=== PATIENT | male | born 1965 | race Caucasian/White ===

== ENCOUNTER 2017-02-15 14:21 | Emergency (ER) | payer BC ==
--- NOTE | 2017-02-15 14:56 | UC ---
Ear Complaint HPI - HPI Summary HPI Summary: Patient was seen by Moe SALCIDO. - History of Current Complaint Stated Complaint: EAR PAIN Time Seen by Provider: 02/15/17 14:55 - Allergies/Home Medications Allergies/Adverse Reactions: Allergies Allergy/AdvReac Type Severity Reaction Status Date / Time Sulfa Antibiotics Allergy Hives Verified 02/15/17 16:13 Home Medications: Home Medications Losartan TAB* [Cozaar TAB*] 25 mg PO DAILY 02/15/17 [History Confirmed 02/15/17] Montelukast Sodium TAB* [Singulair TAB*] 10 mg PO DAILY 02/15/17 [History Confirmed 02/15/17] Pantoprazole Sodium [Protonix] 20 mg PO 02/15/17 [History] PMH/Surg Hx/FS Hx/Imm Hx Previously Healthy: Yes Review of Systems Constitutional: Negative Skin: Negative Eyes: Negative ENT: Ear Ache Respiratory: Negative Cardiovascular: Negative Gastrointestinal: Negative Genitourinary: Negative Motor: Negative Neurovascular: Negative Musculoskeletal: Negative Neurological: Negative Psychological: Negative All Other Systems Reviewed And Are Negative: Yes Physical Exam Triage Information Reviewed: Yes Eye Exam: Normal ENT: Positive: Other: - EARACHE Dental Exam: Normal Neck exam: Normal Neck: Positive: 1 Respiratory Exam: Normal Cardiovascular Exam: Normal Abdominal Exam: Normal Musculoskeletal Exam: Normal Neurological Exam: Normal Psychological Exam: Normal Skin Exam: Normal Ear Complaint Course/Dx - Differential Dx/Diagnosis Provider Diagnoses: EARACHE Discharge - Discharge Plan Condition: Stable Disposition: HOME Prescriptions: Amoxicillin/Clavulanate TAB* [Augmentin TAB 875*] 875 mg PO BID #20 tab Ciproflox/Dexameth OTIC.SUSP* [Ciprodex OTIC.SUSP*] 3 drop .SEE ORDER TID #1 btl Patient Education Materials: Cerumen Impaction (ED), Earache (ED), Serous Otitis Media (ED) Referrals: [facility] [place] [facility] [Outside] No Primary Care Phys,NOPCP [Primary Care Provider] -
[2017-02-15 16:13] VITALS: BP 143/101
--- NOTE | 2017-02-15 17:24 | UC ---
Ear Complaint HPI - HPI Summary HPI Summary: TWO MONTHS OF BILATERAL EAR PAIN, PRESSURE. GETS FREQUENT SINUS INFECTIONS AND HAS ALLERGIES WHERE HE TAKES DAILY FLONASE. NEW TO AREA. NEDDS TO ESTABLISH PRIMARY CARE. - History of Current Complaint Chief Complaint: UCEar Stated Complaint: EAR PAIN Time Seen by Provider: 02/15/17 14:55 Hx Obtained From: Patient Onset/Duration: Gradual Onset, Lasting Weeks, Still Present Associated Signs/Symptoms: Positive: Hearing Loss, URI Symptoms - Allergies/Home Medications Allergies/Adverse Reactions: Allergies Allergy/AdvReac Type Severity Reaction Status Date / Time Sulfa Antibiotics Allergy Hives Verified 02/15/17 16:13 Home Medications: Home Medications Losartan TAB* [Cozaar TAB*] 25 mg PO DAILY 02/15/17 [History Confirmed 02/15/17] Montelukast Sodium TAB* [Singulair TAB*] 10 mg PO DAILY 02/15/17 [History Confirmed 02/15/17] Pantoprazole Sodium [Protonix] 20 mg PO 02/15/17 [History] PMH/Surg Hx/FS Hx/Imm Hx Previously Healthy: Yes - Surgical History Surgical History: None - Family History Known Family History: Positive: Respiratory Disease - Social History Occupation: Employed Full-time Lives: With Family Alcohol Use: Occasionally Substance Use Type: None Smoking Status (MU): Never Smoked Tobacco Review of Systems Constitutional: Negative Skin: Negative Eyes: Negative ENT: Ear Ache Respiratory: Negative Cardiovascular: Negative Gastrointestinal: Negative Genitourinary: Negative Motor: Negative Neurovascular: Negative Musculoskeletal: Negative Neurological: Negative Psychological: Negative All Other Systems Reviewed And Are Negative: Yes Physical Exam Triage Information Reviewed: Yes Appearance: Well-Appearing, No Pain Distress Vital Signs: Initial Vital Signs Temp 99.0 F 02/15/17 16:07 Pulse 92 02/15/17 16:07 Resp 18 02/15/17 16:07 BP 143/101 02/15/17 16:07 Pulse Ox 99 02/15/17 16:07 Vital Signs Reviewed: Yes Eye Exam: Normal ENT: Positive: Pharynx normal, Nasal congestion, TM bulging, TM dull, Other: - BILATERAL CERUMEN IMPACTION; EDEMA RIGHT EAC Dental Exam: Normal Neck exam: Normal Respiratory Exam: Normal Ear Complaint Course/Dx - Differential Dx/Diagnosis Differential Diagnosis/HQI/PQRI: Cerumen Impaction, Otitis Externa, Otitis Media , Trauma, URI Provider Diagnoses: BILATTERAL CERUMEN IMPACTION; SINUSITIS; RIGHT OTITIS SEROUS Discharge - Discharge Plan Condition: Stable Disposition: HOME Prescriptions: Amoxicillin/Clavulanate TAB* [Augmentin TAB 875*] 875 mg PO BID #20 tab Ciproflox/Dexameth OTIC.SUSP* [Ciprodex OTIC.SUSP*] 3 drop .SEE ORDER TID #1 btl Patient Education Materials: Cerumen Impaction (ED), Earache (ED), Serous Otitis Media (ED) [place] [facility] [place] [facility] [Outside] No Primary Care Phys,NOPCP [Primary Care Provider] -
== END 2017-02-15 17:20 | disposition home or self-care (01) ==
LOC: UCEAST 14:21
DX: H61.23 Impacted cerumen, bilateral (principal); J32.9 Chronic sinusitis, unspecified; H65.91 Unspecified nonsuppurative otitis media, right ear; T78.40XA Allergy, unspecified, initial encounter
CPT/HCPCS: 99203; G0463

== ENCOUNTER 2018-11-04 08:41 | Day surgery (SDC) | payer BC ==
--- NOTE | 2018-11-01 21:23 | HP ---
PREOPERATIVE HISTORY AND PHYSICAL: DATE OF ADMISSION/SURGERY: 11/04/18 ATTENDING SURGEON: Dr. James Rodriguez.* (DICTATED BY OMARI DESAI) PROCEDURE: Left elbow lateral epicondylar debridement, extensor carpi radialis brevis repair. CHIEF COMPLAINT: Left elbow pain. HISTORY OF PRESENT ILLNESS: King is a 53-year-old who presents to the clinic for left elbow pain due to a tear of his ECRB. He has failed conservative measures and is therefore agreed to undergo a left elbow lateral epicondylar debridement, extensor carpi radialis brevis repair on 11/04/18. PAST MEDICAL HISTORY: Hypertension, asthma, high cholesterol, GERD, anxiety. PAST SURGICAL HISTORY: ACL left knee, several endoscopy/colonoscopy procedures. The patient denies prior complications with anesthesia. He does get nausea and vomiting, but with his last procedure he did not have any. MEDICATIONS: 1. Montelukast sodium 10 mg one by mouth every day. 2. ProAir HFA 108 mcg/act 2 puffs every 4 hours as needed. 3. Ibuprofen 200 mg 2 to 3 tabs days every 6 hours. 4. Breo Ellipta 200/25 mcg inhalation 1 inhalation daily. 5. Pantoprazole sodium 40 mg 1 by mouth every day. 6. Losartan potassium 50 mg 1 by mouth every day. 7. Fluticasone propionate 50 mcg/act 1 spray each nostril every day. ALLERGIES: SULFA ANTIBIOTICS. FAMILY HISTORY: Positive for hypertension and cancer. SOCIAL HISTORY: He lives with his spouse. 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 He denies tobacco use. He reports occasional alcohol consumption. He is right hand dominant. REVIEW OF SYSTEMS: A 14-point review of systems was reviewed with the patient. Positive for current complaint otherwise negative. Denies fever, chills, chest pain, shortness of breath, history of bleeding disorder, history of DVT or PE. PHYSICAL EXAMINATION GENERAL: A 53-year-old well-developed, well-nourished male, in no acute distress, alert and oriented x3. VITAL SIGNS: Height 70, weight 200, pulse 72, blood pressure 130/92, respiratory rate 16, temperature 96.5, BMI 28.7. HEENT: Normocephalic, atraumatic. PERRLA. Throat clear. NECK: Supple. PULMONARY: Lungs clear to auscultation bilaterally. No wheezing, rhonchi, or rales. CARDIO: Regular rate and rhythm. S1 and S2. No murmurs, gallops, or rubs. No edema. ABDOMEN: Positive bowel sounds, soft, nontender. MUSCULOSKELETAL: Left upper extremity: Skin is intact. No warmth or erythema. Full range of motion of elbow, wrist, and hand. No bruising. No palpable defect. Tenderness to palpation over the lateral epicondyle. Discomfort with resistance to wrist extension and long finger extension. +2 radial pulses. +5/5 supply tech strength. Sensation is intact to light touch distally. NEURO: Alert and oriented x3. Cranial nerves grossly intact. DIAGNOSTIC STUDIES: MRI revealed no full-thickness tear of the tendon. He does have thick stigmata of lateral epicondylitis with no loose body. IMPRESSION: Left elbow lateral epicondylitis. PLAN: The patient is scheduled to undergo left elbow lateral epicondylar debridement, extensor carpi radialis brevis repair performed on 11/04/18. He will follow up in 10 to 14 days postop and tramadol will be used for postop pain management. OMARI DESAI [id number]/[facility] #: [id number] ROXI
[~2018-11-04 08:41] MED LIST: Buffered Lidocaine 1% SYRIN* 1 ML/SYRINGE INTRADERM ONE; Famotidine IV* 10 MG/ML 2 ML (20 mg) IV ONE; Lactated Ringers 1000 ML Bag* 1,000 ML IV SCH
[2018-11-04] MEDS ORDERED: Famotidine IV* 10 MG/ML 2 ML (20 mg) ONE (08:47)
[2018-11-04] MEDS ORDERED: ceFAZolin 2 GM in NS PREMIX(*) 2 GM/100 ML BAG IVPB ONE (08:47)
[2018-11-04] MEDS ORDERED: Midazolam* 1 MG/ML 5 ML VIAL (5 MG) ONE (09:51)
[2018-11-04] MEDS ORDERED: fentaNYL* 50 MCG/ML 2 ML VIAL (100 MCG VIAL) ONE (09:51)
[2018-11-04] MEDS ORDERED: Bupivacaine 0.25% EPI 200,000* 30 ML SDV ONE (11:04)
[2018-11-04] MEDS ORDERED: Ropivacaine* 2 MG/ML 20 ML VIAL (0.2%) ONE (11:54)
[2018-11-04] MEDS ORDERED: Ondansetron INJ* 2 MG/ML VIAL ONE (12:28)
[2018-11-04] MEDS ORDERED: DiMENhydriNATE IV* 50 MG/ML VIAL ONE (12:28)
[2018-11-04] MEDS ORDERED: Ketorolac INJ* 30 MG/ML 1 ML VIAL ONE (12:28)
[2018-11-04] MEDS ORDERED: Dexamethasone IV* 4 MG/ML 1 ML (4 MG) ONE (12:28)
[2018-11-04] MEDS ORDERED: Propofol* 10 MG/ML 20 ML BTL ONE (12:28)
[2018-11-04] MEDS ORDERED: Naloxone* 0.4 MG/ML 1 ML VIAL IV PRN (12:40)
[2018-11-04] MEDS ORDERED: DiMENhydriNATE IV* 50 MG/ML VIAL IV PUSH PRN (12:40)
[2018-11-04] MEDS ORDERED: Scopolamine 1.5 mg* PATCH TRANSDERM PRN (12:40)
[2018-11-04] MEDS ORDERED: Acetaminophen TAB* 325 MG PO PRN (12:40)
[2018-11-04] MEDS ORDERED: HYDROmorphone INJ1* 1 MG/ML SYRINGE IV PRN (12:40)
[2018-11-04] MEDS ORDERED: HYDROmorphone INJ1* 1 MG/ML SYRINGE ONE (12:53)
[2018-11-04] MEDS ORDERED: Scopolamine 1.5 mg* PATCH ONE (12:58)
[2018-11-04] MEDS ORDERED: oxyCODONE/Acetamin 5/325 MG* TAB ONE (12:58)
[2018-11-04] MEDS ORDERED: Acetaminophen TAB* 325 MG ONE (13:26)
[2018-11-04 14:22] VITALS: BP 138/89
--- NOTE | 2018-11-05 02:18 | OP ---
CC: PCP OPERATIVE REPORT: DATE OF OPERATION: 11/04/18 DATE OF : 69 SURGEON: James Rodriguez MD SETTER [employer]ACHINES: OMARI Bruce An client services assistant was needed for the entirety of the case to help with positioning, retraction, and was ut ilized throughout all portions of the case. ANESTHESIOLOGIST: Dr. Mariano ANESTHESIA: General. PRE-OP DIAGNOSIS: Left lateral epicondylitis. POST-OP DIAGNOSIS: Left lateral epicondylitis. OPERATIVE PROCEDURE: Left elbow open lateral epicondylar debridement with exostectomy of the lateral epicondyle and repair of the extensor tendon. ESTIMATED BLOOD LOSS: Minimal. TOURNIQUET TIME: 22 minutes at 250 mmHg. INDICATIONS: King Wagner is a 53-year-old male who has had persistent symptoms of pain with sever al years of lateral epicondylitis. He has failed conservative management. He says he has significan t daily pain and limitation of his activity. Risks and benefits were discussed at length including, b ut not limited to, bleeding; infection; damage to nerves, vessels, surrounding structures; wound nonh ealing; persistent pain; need for further surgery; scarring; stiffness; incomplete relief of symptoms ; risk of anesthesia. He has elected to proceed. DESCRIPTION OF PROCEDURE: The patient was greeted in the preoperative area by the attending surgeon. Correct extremity was marked. Consent was confirmed. The patient was brought back to the operatin g suite where he was placed in the supine position on the table. A hand table was brought to the [facility] ld. A nonsterile tourniquet was placed high in the proximal arm. He underwent general anesthesia wi th LMA intubation. The left arm was prepped and draped in the usual sterile fashion beginning with c hlorhexidine soap, scrub, and alcohol wipe. After appropriate surgical pause indicating site, side, procedure, administration of antibiotics, an Esmarch was used to exsanguinate the limb. The tourniquet was inflated to 250 mmHg. A 4 cm lateral based incision just anterior to the lateral epicondyle was made sharply through the skin. There was some scarring of the subcutaneous tissue. Extensor tendon was identified and the ECRL and EDC were i dentified. An incision was made between the 2 tendons to expose the ECRB. Tendon quality was quite poor and there was significant inflammatory tissue which was debrided back using a knife and a rongeu r. Once the diseased tissue was removed, which was confirmed using the Nirschl scratch test, the fla ps under both the EDC and ECRL were examined to make sure there was no fibrinous tissue. The ECRB wa s evaluated, some of the tendon had some partial thickness tearing. The lateral epicondyle was then exposed and then grasped using a rasp as well as a rongeur and shaved down. The wounds were then endoscopic technician iously irrigated. Using one 0.08 mm K wire, three small drill holes were made in the lateral epicond yle to stimulate wound healing. Wounds were then copiously irrigated again. The extensor tendons we re reapproximated carefully for watertight closure using 2-0 Ethibond suture. The subcutaneous layer s were then closed with 4-0 Monocryl and the skin was closed with 4-0 Monocryl in running fashion. Sterile dressings were applied. The wound was injected with 0.2% ropivacaine. Tourniquet was deflat ed. A posterior splint was applied including the wrist. The patient was awoken from anesthesia and transferred to the PACU in stable condition. POSTOPERATIVE PLAN: He will be in a sling for about 2 weeks. He will be discharged on pain medicati on. DVT prophylaxis was considered, but deferred due to no previous personal or family history. I w shruthi see the patient back in about 2 weeks. [id number]/[facility] #: [id number]
== END 2018-11-04 14:25 | disposition home or self-care (01) ==
LOC: OR 08:41
PROVIDERS: ATTEND Orthopaedic Surgery
DX: M77.12 Lateral epicondylitis, left elbow (principal); I10 Essential (primary) hypertension; J45.909 Unspecified asthma, uncomplicated; E78.00 Pure hypercholesterolemia, unspecified; K21.9 Gastro-esophageal reflux disease without esophagitis; F41.9 Anxiety disorder, unspecified; Z88.2 Allergy status to sulfonamides
CPT/HCPCS: A9270-GY; J0690; J1100; J1170; J1240; J1885; J2250; J2405; J2704; J2795; J3010